=== PATIENT | female | born 1975 | race Native Hawaiian/Other Pacific Islander ===

== ENCOUNTER 2017-02-05 15:12 | Outpatient (CLI) | payer BC ==
[2017-02-05] MEDS ORDERED: MONT10TA PO (15:44)
[2017-02-05] MEDS ORDERED: LISI10TA11 PO (15:46)
[2017-02-05] MEDS ORDERED: SUBOXONE1 MI2 SL (15:47)
[2017-02-05] MEDS ORDERED: BRINTELLIX10 MG PO (15:49)
[2017-02-05] MEDS ORDERED: TRINTELLIX5 MG PO (15:49)
== END 2017-02-05 15:15 | disposition short-term general hospital (02) ==
LOC: AMB 15:12
DX: S61.512A Laceration without foreign body of left wrist, initial encounter (principal); X78.8XXA Intentional self-harm by other sharp object, initial encounter; Y92.098 Other place in other non-institutional residence as the place of occurrence of the external cause
CPT/HCPCS: A0425; A0429

== ENCOUNTER 2017-02-05 15:27 | Emergency (ER) | payer BC ==
[~2017-02-05] VITALS: Ht 167.6 cm; Wt 90.7 kg
[2017-02-05] MEDS ORDERED: MONT10TA PO (15:44)
[2017-02-05] MEDS ORDERED: LISI10TA11 PO (15:46)
[2017-02-05] MEDS ORDERED: SUBOXONE1 MI2 SL (15:47)
[2017-02-05] MEDS ORDERED: TRINTELLIX5 MG PO (15:49)
[2017-02-05] MEDS ORDERED: BRINTELLIX10 MG PO (15:49)
[2017-02-05 16:02] LABS: PLATELET COUNT 380 K/uL (152-353)
[2017-02-05 16:18] LABS: POTASSIUM 4.2 mmol/L (3.6-5.2); SODIUM 138 mmol/L (136-145)
[2017-02-05 20:28] VITALS: BP 116/78; TEMP 98
== END 2017-02-05 20:40 | disposition other institution (70) ==
LOC: ED 15:27
PROVIDERS: Emergency Medicine
DX: R45.851 Suicidal ideations (principal); F32.89 Other specified depressive episodes; S60.812A Abrasion of left wrist, initial encounter
CPT/HCPCS: 80053; 80307; 80320; 80329; 81000; 85027; 99285; G0479

== ENCOUNTER 2017-08-21 04:54 | Emergency (ER) | payer BC, OTHER ==
[~2017-08-21] VITALS: Ht 170.2 cm; Wt 108.9 kg
[~2017-08-21 04:54] MED LIST: BRINTELLIX10 MG PO; LISI10TA11 PO; MONT10TA PO; SUBOXONE1 MI2 SL; TRINTELLIX5 MG PO
[2017-08-21 05:05] VITALS: TEMP 98
[2017-08-21 06:04] LABS: POTASSIUM 3.2 mmol/L (3.6-5.2); SODIUM 137 mmol/L (136-145)
[2017-08-21 06:12] LABS: PARTIAL THROMBOPLASTIN TIME 21.6 SECONDS (24.5-33.6)
[2017-08-21 06:47] LABS: PLATELET COUNT 599 K/uL (152-353)
[2017-08-21 07:05] VITALS: BP 158/85
== END 2017-08-21 07:05 | disposition home or self-care (01) ==
LOC: ED 04:54
DX: R00.0 Tachycardia, unspecified (principal); F41.9 Anxiety disorder, unspecified; R42 Dizziness and giddiness
CPT/HCPCS: 80053; 80307; 80320; 81000; 82550; 84484; 85027; 85610; 85730; 93005; 96374; 99284; J3490

== ENCOUNTER 2017-12-04 10:29 | Outpatient (CLI) | payer OTHER | END 2017-12-04 20:42 | disposition home or self-care (01) | LOC: RAD 10:29 | DX: M25.572 Pain in left ankle and joints of left foot (principal) ==

== ENCOUNTER 2018-01-29 17:24 | Emergency (ER) | payer BC, OTHER ==
[~2018-01-29] VITALS: Ht 167.6 cm; Wt 105.2 kg
[~2018-01-29 17:24] MED LIST changes: +ALBU90AE13 INH; +CLON0.5T36 PO; +CLOP75TA2 PO; +ENDOCET1 TA1 PO; +INSUINJ47 SC; +INVOKANA300 MG PO; +METOPROLOL25 M1 PO
[2018-01-29 17:28] VITALS: TEMP 97.5
[2018-01-29 18:18] VITALS: BP 152/80
== END 2018-01-29 18:19 | disposition home or self-care (01) ==
LOC: ED 17:24
PROC: 0HQFXZZ Repair Right Hand Skin, External Approach (ICD-10-PCS; principal; 2018-01-29)
DX: S61.216A Laceration without foreign body of right little finger without damage to nail, initial encounter (principal); X58.XXXA Exposure to other specified factors, initial encounter; Y92.89 Other specified places as the place of occurrence of the external cause
CPT/HCPCS: 90471; 90715; 99283

== ENCOUNTER 2018-02-04 18:28 | Outpatient (CLI) | payer BC, OTHER | END 2018-02-04 19:34 | disposition home or self-care (01) | LOC: RAD 18:28 → EDP 18:28 → RAD 19:34 | DX: M25.561 Pain in right knee (principal) ==

== ENCOUNTER 2018-07-07 17:06 | Observation (INO) | payer OTHER ==
[~2018-07-07] VITALS: Ht 167.6 cm; Wt 92.2 kg
[2018-07-07 19:38] VITALS: BP 128/71; TEMP 98; Ht 167.6 cm; Wt 92.2 kg
[2018-07-07 19:55] LABS: PLATELET COUNT 508 K/uL (152-353)
[2018-07-07 20:00] VITALS: BP 170/94; TEMP 98.3
[2018-07-07 20:06] LABS: POTASSIUM 3.3 mmol/L (3.6-5.2)
[2018-07-08] VITALS: BP 141/87; TEMP 98.3
[2018-07-08 04:00] VITALS: BP 152/68; TEMP 98.4
[2018-07-08 08:00] VITALS: BP 145/94; TEMP 97.7
[2018-07-08 09:38] LABS: PLATELET COUNT 467 K/uL (152-353)
[2018-07-08 09:53] LABS: POTASSIUM 3.4 mmol/L (3.6-5.2)
[2018-07-08 12:01] VITALS: BP 129/80; TEMP 98.1
== END 2018-07-08 15:25 | disposition home or self-care (01) ==
LOC: MED/SURG 17:06
PROVIDERS: ADMIT Family Medicine
DX: M54.5 Low back pain (principal); M48.46XA Fatigue fracture of vertebra, lumbar region, initial encounter for fracture; R07.89 Other chest pain; E86.0 Dehydration; D64.9 Anemia, unspecified; R53.83 Other fatigue
CPT/HCPCS: 80053; 81000; 82728; 83540; 83550; 85027; 99220; G0378; G0379; J1885; J3490

== ENCOUNTER 2018-07-16 00:48 | Emergency (ER) | payer OTHER ==
[~2018-07-16] VITALS: Ht 167.6 cm; Wt 92.1 kg
[2018-07-16 03:32] VITALS: BP 166/88; TEMP 98.3
== END 2018-07-16 03:45 | disposition home or self-care (01) ==
LOC: ED 00:48
DX: M54.5 Low back pain (principal); M48.56XA Collapsed vertebra, not elsewhere classified, lumbar region, initial encounter for fracture; Z91.81 History of falling
CPT/HCPCS: 96372; 99282; J1885

== ENCOUNTER 2018-08-31 17:50 | Outpatient (CLI) | payer OTHER | END 2018-08-31 22:42 | disposition home or self-care (01) | LOC: RAD 17:50 | DX: S39.92XA Unspecified injury of lower back, initial encounter (principal) ==

== ENCOUNTER 2018-09-03 15:33 | Outpatient (CLI) | payer OTHER | END 2018-09-03 19:16 | disposition home or self-care (01) | LOC: RAD 15:33 | DX: M54.2 Cervicalgia (principal); S69.91XA Unspecified injury of right wrist, hand and finger(s), initial encounter ==

== ENCOUNTER 2018-10-08 09:24 | Outpatient (CLI) | payer OTHER | END 2018-10-08 21:00 | disposition home or self-care (01) | LOC: MRI 09:24 | DX: M48.56XA Collapsed vertebra, not elsewhere classified, lumbar region, initial encounter for fracture (principal); M54.12 Radiculopathy, cervical region ==

== ENCOUNTER 2018-10-31 09:31 | Emergency (ER) | payer OTHER ==
[~2018-10-31] VITALS: Ht 167.6 cm; Wt 92.1 kg
[2018-10-31 10:04] LABS: PLATELET COUNT 284 K/uL (152-353)
[2018-10-31 10:12] LABS: POTASSIUM 3.4 mmol/L (3.6-5.2)
[2018-10-31 11:15] VITALS: BP 164/86; TEMP 99.8
== END 2018-10-31 11:18 | disposition home or self-care (01) ==
LOC: ED 09:31
PROVIDERS: Family Medicine
DX: R10.84 Generalized abdominal pain (principal); R19.7 Diarrhea, unspecified; B34.9 Viral infection, unspecified; E87.6 Hypokalemia
CPT/HCPCS: 36415; 74022; 80053; 82150; 83690; 85027; 96360; 99284

== ENCOUNTER 2018-11-12 11:55 | Observation (INO) | payer OTHER ==
[~2018-11-12] VITALS: Ht 167.6 cm; Wt 90.9 kg
--- NOTE | 2018-11-12 12:40 | NUR ---
PT ARRIVED VIA . PT TO [facility] 1110. PT ORIENTED TO ROOM AND CALL LIGHT.
[2018-11-12 13:22] LABS: PLATELET COUNT 710 K/uL (152-353)
[2018-11-12 14:07] VITALS: BP 149/93; TEMP 97.3; Ht 167.6 cm; Wt 90.9 kg
[2018-11-12 14:15] LABS: POTASSIUM 4.5 mmol/L (3.6-5.2)
[2018-11-12 14:29] VITALS: BP 149/93; TEMP 97.3
[2018-11-12] MEDS ORDERED: TIZA4TAB5 PO (16:36)
[2018-11-12] MEDS ORDERED: LISI10TA11 PO (16:36)
--- NOTE | 2018-11-12 16:42 | NUR ---
CALLED DR GILL TO RESTART HOME MEDS. ZANFLEX 4 MG PO Q8HR PRN AND LISINOPRIL 10 MG BID RESTARTED
--- NOTE | 2018-11-12 17:55 | NUR ---
DR GILL NOTIFIED OF POSITIVE OCCULT BLOOD. ORDERS REC'D FOR BLOOD CULTURE X 2
[2018-11-12 20:00] VITALS: BP 156/93; TEMP 99.8
[2018-11-12 23:51] VITALS: BP 135/79; TEMP 98.2
[2018-11-13 03:54] VITALS: BP 119/70; TEMP 97.7
[2018-11-13 08:00] VITALS: BP 114/76; TEMP 98.1
[2018-11-13 12:00] VITALS: BP 118/77; TEMP 98.2
--- NOTE | 2018-11-13 18:01 | NUR ---
PATIENT WAS DISCHARGED TO HOME AND TRANSPORT TO PERSONAL VEHICLE VIA W/C. ACCOMPIED BY . PRESCRIPTIONS WERE GIVEN TO PATIENT. NO ACUTE DISTRESS NOTED.
== END 2018-11-13 16:50 | disposition home or self-care (01) ==
LOC: MED/SURG 11:55
PROVIDERS: ADMIT Family Medicine
DX: I10 Essential (primary) hypertension (principal); G47.09 Other insomnia; E86.0 Dehydration; F41.8 Other specified anxiety disorders
CPT/HCPCS: 80053; 80307; 81000; 82272; 84436; 84443; 85027; 87015; 87040; 87045; 87324; 87328; 87329; 87449; 87899; 99220; G0378; G0379; J1885; J2060; J2550; J3490

== ENCOUNTER 2019-02-16 13:40 | Observation (INO) | payer OTHER ==
[~2019-02-16] VITALS: Ht 167.6 cm; Wt 94.6 kg
[2019-02-16] VITALS (11 sets, daily range): BP systolic 135–161; BP diastolic 65–96; TEMP 98.7; Ht 167.6 cm; Wt 94.6 kg
[~2019-02-16 13:40] MED LIST changes: +TIZA4TAB5 PO
[2019-02-16 14:28] LABS: PLATELET COUNT 367 K/uL (152-353)
[2019-02-16 14:43] LABS: POTASSIUM 4.1 mmol/L (3.6-5.2); SODIUM 140 mmol/L (136-145)
--- NOTE | 2019-02-16 23:19 | NUR ---
02/16/191929 RECEIVED REPORT FROM DAY SHIFT.20 GAUDGE STARTED TO RT AC PER ER. DX CHEST PAIN BENZODIAZEPINE USE.PT IS A/O LYING IN BED NAD NOTED.PT STATES SHE HAS BEEN HAVING SOME RECENT SEIZURES AT HOME WITNESSED BY .SHE SAID SHE HASNOT CONTACTED HER DOCTOR ABOUT THIS. SHE SAID THIS WAS 3-4 DAYS AGO WHERE SHE AHD SOME NUMBNESS TO FACE.SHE SAID DR. 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
[2019-02-17] VITALS: BP 125/74; TEMP 98.9
[2019-02-17 00:20] LABS: PARTIAL THROMBOPLASTIN TIME 21.9 SECONDS (24.5-33.6)
[2019-02-17 04:00] VITALS: BP 140/58; TEMP 98.7
[2019-02-17 08:00] VITALS: BP 138/68; TEMP 98.8
--- NOTE | 2019-02-17 10:29 | NUR ---
GERALD WAS ADMITTED WITH CHEST PAIN AND BENZODIAZEPINE USE AND IS 66" AND IBW 130+-10% AND WEIGHT AT 208 LBS. AND BMI AT 33.56 CLASS I OBESITY AND KCAL NEEDS FOR IBW 1800, PRO 59 TO 89 AND FLUIDS FOR WEIGHT X 30 = 2836 ML PER DAY ON A 2 GM NA DIET PLAN. RECOMMEND: 1-INCREASE FOODS HIGH IN FE, STRESS HBV PROTEIN AND SUGGEST A NCS HIGHER FIBER CARDICA DIET
--- NOTE | 2019-02-17 15:10 | NUR ---
@1400 PT DISCHARGED VIA WHEELCHAIR TO HOME, ALL DISCHARGE INFO AND MEDICATIONS DISCUSSED WITH PT
== END 2019-02-17 14:00 | disposition home or self-care (01) ==
LOC: ED 13:40 → MED/SURG 17:25
PROVIDERS: Family Medicine; ADMIT Family Medicine
DX: R07.89 Other chest pain (principal); I10 Essential (primary) hypertension; F41.8 Other specified anxiety disorders; E66.8 Other obesity; F31.89 Other bipolar disorder
CPT/HCPCS: 80053; 80307; 81000; 82550; 84484; 85027; 85610; 85730; 93005; 99220; 99284; G0378

== ENCOUNTER 2019-03-15 12:22 | Outpatient (CLI) | payer OTHER | END 2019-03-15 19:45 | disposition home or self-care (01) | LOC: LABW 12:22 | DX: R10.9 Unspecified abdominal pain (principal); R10.2 Pelvic and perineal pain | CPT/HCPCS: 81000 ==

== ENCOUNTER 2019-05-31 15:17 | Outpatient (CLI) | payer OTHER ==
[2019-05-31 15:35] LABS: PLATELET COUNT 380 K/uL (152-353)
[2019-05-31 16:09] LABS: POTASSIUM 3.9 mmol/L (3.6-5.2)
== END 2019-05-31 23:12 | disposition home or self-care (01) ==
LOC: LABW 15:17
PROVIDERS: Family Medicine
DX: R50.9 Fever, unspecified (principal); R19.7 Diarrhea, unspecified; R10.9 Unspecified abdominal pain; K21.9 Gastro-esophageal reflux disease without esophagitis; D64.9 Anemia, unspecified; R39.11 Hesitancy of micturition
CPT/HCPCS: 36415; 80053; 81000; 82607; 82728; 83540; 83550; 83735; 84439; 84443; 85027

== ENCOUNTER 2019-06-01 15:39 | Outpatient (CLI) | payer OTHER | END 2019-06-01 20:03 | disposition home or self-care (01) | LOC: LAB 15:39 | DX: R50.9 Fever, unspecified (principal); R19.7 Diarrhea, unspecified; R10.9 Unspecified abdominal pain; K21.9 Gastro-esophageal reflux disease without esophagitis; D64.9 Anemia, unspecified; R39.11 Hesitancy of micturition | CPT/HCPCS: 82272; 87015; 87045; 87324; 87328; 87329; 87449; 87899 ==

== ENCOUNTER 2019-06-16 13:44 | Emergency (ER) | payer OTHER ==
[~2019-06-16] VITALS: Ht 167.6 cm; Wt 127.0 kg
[2019-06-16 13:52] VITALS: BP 135/76; TEMP 98.1
== END 2019-06-16 15:44 | disposition home or self-care (01) ==
LOC: ED 13:44
DX: S09.8XXA Other specified injuries of head, initial encounter (principal); W01.198A Fall on same level from slipping, tripping and stumbling with subsequent striking against other object, initial encounter; Y92.512 Supermarket, store or market as the place of occurrence of the external cause
CPT/HCPCS: 99283

== ENCOUNTER 2019-06-30 10:58 | Outpatient (CLI) | payer OTHER | END 2019-06-30 20:49 | disposition home or self-care (01) | LOC: MRI 10:58 | DX: R51 Headache (principal); R42 Dizziness and giddiness; R93.0 Abnormal findings on diagnostic imaging of skull and head, not elsewhere classified ==

== ENCOUNTER 2019-09-21 12:44 | Outpatient (CLI) | payer OTHER | END 2019-09-21 19:13 | disposition home or self-care (01) | LOC: RAD 12:44 | DX: R50.9 Fever, unspecified (principal); J45.909 Unspecified asthma, uncomplicated; R05 Cough ==

== ENCOUNTER 2019-10-29 16:22 | Emergency (ER) | payer OTHER ==
[~2019-10-29] VITALS: Ht 167.6 cm; Wt 127.0 kg
[2019-10-29 17:07] LABS: POTASSIUM 3.6 mmol/L (3.6-5.2); SODIUM 140 mmol/L (136-145)
[2019-10-29 17:17] LABS: PLATELET COUNT 534 K/uL (152-353)
[2019-10-30 03:43] VITALS: BP 118/59; TEMP 98.1
== END 2019-10-30 03:44 | disposition other institution (70) ==
LOC: ED 16:22
PROVIDERS: Family Medicine
DX: F10.129 Alcohol abuse with intoxication, unspecified (principal); W18.39XA Other fall on same level, initial encounter; Y92.512 Supermarket, store or market as the place of occurrence of the external cause
CPT/HCPCS: 80053; 80307; 80320; 80329; 81000; 82150; 82550; 83690; 84484; 85027; 96360; 96361; 96375; 99284; 99285; J1885; J3411; J3475; J3490

== ENCOUNTER 2019-12-30 11:34 | Observation (INO) | payer OTHER ==
[2019-12-30] VITALS (7 sets, daily range): BP systolic 143–165; BP diastolic 82–108; TEMP 98.8–98.9; Ht 167.6 cm; Wt 90.9 kg
[~2019-12-30] VITALS: Ht 167.6 cm; Wt 90.9 kg
[2019-12-30 12:12] LABS: PLATELET COUNT 462 K/uL (152-353)
[2019-12-30 12:29] LABS: POTASSIUM 4.1 mmol/L (3.6-5.2); SODIUM 139 mmol/L (136-145)
[2019-12-30 12:33] LABS: PARTIAL THROMBOPLASTIN TIME 23.6 SECONDS (24.5-33.6)
[2019-12-30] MEDS ORDERED: CARV12.5 PO (22:53)
[2019-12-30] MEDS ORDERED: HYDRALAZINE50 MG PO (22:53)
[2019-12-30] MEDS ORDERED: HYDR25TA60 PO (22:55)
[2019-12-30] MEDS ORDERED: COZAAR100 MG PO (22:56)
[2019-12-30] MEDS ORDERED: CARISOPRODOL250 MG PO (22:58)
[2019-12-30] MEDS ORDERED: ROBAXIN-750750 MG PO (22:59)
[2019-12-30] MEDS ORDERED: OXYC5TAB53 PO (23:00)
[2019-12-30] MEDS ORDERED: PROPRANOLOL10 MG PO (23:06)
[2019-12-30] MEDS ORDERED: LABETALOL100 MG PO (23:07)
[2019-12-30] MEDS ORDERED: LEXAPRO10 MG PO (23:07)
[2019-12-31] VITALS: BP 178/86; TEMP 98.1
[2019-12-31 03:47] VITALS: BP 139/74; TEMP 98.9
[2019-12-31 08:00] VITALS: BP 168/84; TEMP 98.1
[2019-12-31 12:00] VITALS: BP 140/83; TEMP 100
== END 2019-12-31 14:00 | disposition home or self-care (01) ==
LOC: ED 11:34 → MED/SURG 13:10
DX: R07.89 Other chest pain (principal); I10 Essential (primary) hypertension; G89.4 Chronic pain syndrome; F31.89 Other bipolar disorder; F41.8 Other specified anxiety disorders; M79.7 Fibromyalgia
CPT/HCPCS: 36415; 80053; 80307; 81000; 82550; 84484; 85027; 85610; 85730; 93005; 94760; 99220; 99284; G0378; J1650; J2060; J2270; J3490

== ENCOUNTER 2020-03-08 18:53 | Emergency (ER) | payer OTHER ==
[~2020-03-08] VITALS: Ht 167.6 cm; Wt 90.7 kg
[~2020-03-08 18:53] MED LIST changes: +CARISOPRODOL250 MG PO; +CARV12.5 PO; +COZAAR100 MG PO; +HYDR25TA60 PO; +HYDRALAZINE50 MG PO; +LABETALOL100 MG PO; +LEXAPRO10 MG PO; +OXYC5TAB53 PO; +PROPRANOLOL10 MG PO; +ROBAXIN-750750 MG PO
[2020-03-08 20:13] LABS: PLATELET COUNT 412 K/uL (152-353)
[2020-03-08 23:24] VITALS: BP 151/90; TEMP 97.2
== END 2020-03-08 23:25 | disposition home or self-care (01) ==
LOC: ED 18:53
PROVIDERS: Emergency Medicine
DX: F10.129 Alcohol abuse with intoxication, unspecified (principal); F41.8 Other specified anxiety disorders
CPT/HCPCS: 80053; 80320; 80329; 85027; 93005; 96360; 99284; J3411; J3475; J3490

== ENCOUNTER 2020-03-15 17:15 | Inpatient (IN) | payer OTHER ==
[~2020-03-15] VITALS: Ht 167.6 cm; Wt 92.7 kg
[2020-03-15 17:27] VITALS: TEMP 97.8
[2020-03-15 18:09] LABS: POTASSIUM 2.6 mmol/L (3.6-5.2)
[2020-03-15 18:22] LABS: PLATELET COUNT 615 K/uL (152-353)
[2020-03-15 19:00] VITALS: BP 136/85
[2020-03-15 20:00] VITALS: BP 142/79
[2020-03-15 21:00] VITALS: BP 129/82
[2020-03-15 22:00] VITALS: BP 136/74
[2020-03-15 23:00] VITALS: BP 131/77
[2020-03-16] VITALS (23 sets, daily range): BP systolic 120–177; BP diastolic 30–99; TEMP 98.2–99.7; Ht 167.6 cm; Wt 92.7 kg
[2020-03-16 05:50] LABS: PLATELET COUNT 486 K/uL (152-353)
[2020-03-16 06:16] LABS: POTASSIUM 3.1 mmol/L (3.6-5.2)
[2020-03-16] MEDS ORDERED: HYZAAR1 TA2 PO (10:47)
[2020-03-16] MEDS ORDERED: LORA1TAB17 PO (11:37)
[2020-03-17] VITALS (14 sets, daily range): BP systolic 112–163; BP diastolic 62–91; TEMP 97.9–98.9
[2020-03-17 11:09] LABS: POTASSIUM 3.3 mmol/L (3.6-5.2)
[2020-03-17] MEDS ORDERED: LOSA50TA PO (13:47)
== END 2020-03-17 17:10 | disposition home or self-care (01) | DRG 918 ==
LOC: ED 17:15 → ICU 22:53
PROVIDERS: Internal Medicine; ADMIT Emergency Medicine
DX: T43.211A Poisoning by selective serotonin and norepinephrine reuptake inhibitors, accidental (unintentional), initial encounter (principal); T51.0X1A Toxic effect of ethanol, accidental (unintentional), initial encounter; Y92.89 Other specified places as the place of occurrence of the external cause; E87.6 Hypokalemia; R00.0 Tachycardia, unspecified; D72.828 Other elevated white blood cell count; A04.5 Campylobacter enteritis; N17.8 Other acute kidney failure; F31.89 Other bipolar disorder; M79.7 Fibromyalgia; I10 Essential (primary) hypertension; K21.9 Gastro-esophageal reflux disease without esophagitis; E87.1 Hypo-osmolality and hyponatremia
CPT/HCPCS: 36415; 80048; 80053; 80307; 80320; 80329; 81000; 81025; 82272; 83630; 85027; 87015; 87045; 87324; 87449; 87635; 87899; 93005; 96360; 96365; 96366; 96368; 96375; 99285; J0456; J0696; J0744; J1885; J2060; J2405; J3360; J3490; Q9963; U0003

== ENCOUNTER 2020-03-23 02:14 | Emergency (ER) | payer OTHER ==
[~2020-03-23] VITALS: Ht 167.6 cm; Wt 90.7 kg
[~2020-03-23 02:14] MED LIST changes: +HYZAAR1 TA2 PO; +LORA1TAB17 PO; +LOSA50TA PO
[2020-03-23 02:20] VITALS: TEMP 98.7
[2020-03-23 02:24] LABS: POTASSIUM 2.9 mmol/L (3.6-5.2)
[2020-03-23 02:26] LABS: PLATELET COUNT 672 K/uL (152-353)
[2020-03-23 09:15] VITALS: BP 138/82
== END 2020-03-23 09:15 | disposition other institution (70) ==
LOC: ED 02:14
PROVIDERS: Emergency Medicine Emergency Medical Services
DX: F10.10 Alcohol abuse, uncomplicated (principal); Y90.6 Blood alcohol level of 120-199 mg/100 ml; F32.89 Other specified depressive episodes; E87.6 Hypokalemia
CPT/HCPCS: 36415; 80053; 80307; 80320; 81000; 84132; 85027; 85048; 96365; 96375; 99285; J1200; J1885